=== PATIENT | female | born 1970 | race Hispanic/Latino ===

== ENCOUNTER → 2019-10-13 | Emergency (ER) | payer SELFPAY ==
[~2019-10-13] VITALS: Ht 160 cm; Wt 72.6 kg
[~2019-10-13] MED LIST: ACETAMINOPHEN 325 MG TAB ONE; ACETAMINOPHEN 325 MG TAB PO ONE; KETOROLAC TROMETHAMINE 30 MG/ML VIAL IM ONE; KETOROLAC TROMETHAMINE 60 MG/2 ML VIAL ONE; ONDANSETRON HCL 4 MG ORAL DISINTEGRATING TAB PO ONE
--- NOTE | 2019-10-13 12:12 | Emergency Department Note ---
History of Present Illnes History of Present Illness Chief Complaint: COVID PUI History of Present Illness This is a 48 year old female Chief Complaint Comment NOT EATING. NO APPETITE. PT AAOX4. AMBULATORY. SMOKER. SATS 100%. 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 ONSET 3 DAYS AGO. Historian: Patient Arrival Mode: Car Patient Placement Coordinator Required: No Onset (how long ago): day(s) (3) Location: Chest Quality: Congestion Radiation: Reports non-radiation Severity: moderate Onset quality: gradual Duration (how long): day(s) (3) Progression: worsening Chronicity: new Past Medical/Family History Physician Review I have reviewed the patient's past medical and family history. Any updates have been documented here. Past Medical History Recent Fever: Yes Clinical Suspicion of Infectio: No New/Unexplained Change in Ment: No Past Medical History: None Past Surgical History: Tubal Ligation, Bariatric Surgery Social History Smoking Cessation: Current every day smoker Counseling Performed: No Alcohol Use: None Any Illegal Drug Use: No Physically hurt or threatened: No Other Any Pre-Existing Lines (PICC,: No Review of Systems Review of Systems Constitutional: Reports as per HPI, Reports chills, Reports fever EENTM: Reports as per HPI, Reports nose congestion, Reports throat pain Cardiovascular: Reports no symptoms Respiratory: Reports as per HPI, Reports cough Gastrointestinal: Reports as per HPI, Reports diarrhea Genitourinary: Reports no symptoms Musculoskeletal: Reports muscle pain; Denies back pain, Denies gout, Denies joint pain, Denies joint swelling Integumentary: Reports no symptoms Neurological: Reports no symptoms Psychological: Reports no symptoms Endocrine: Reports no symptoms Hematological/Lymphatic: Reports no symptoms Physical Exam Related Data Allergies: Coded Allergies: No Known Allergies (Unverified , 10/13/19) Triage Vital Signs Vital Signs Date Time Temp Pulse Resp B/P (MAP) Pulse Ox O2 Delivery O2 Flow Rate FiO2 10/13/19 11:57 100.0 97 16 151/99 100 Room Air Vital signs reviewed: Yes Physical Exam CONSTITUTIONAL Constitutional: Present well-developed, Present well-nourished HENT HENT: Present normocephalic, Present atraumatic, Present oropharynx cl ear/moist, Present nose normal HENT L/R: Present left ext ear normal, Present right ext ear normal EYES Eyes: Reports PERRL, Reports conjunctivae normal NECK Neck: Present ROM normal PULMONARY Pulmonary: Present effort normal, Present breath sounds normal CARDIOVASCULAR Cardiovascular: Present regular rhythm, Present heart sounds normal, Present capillary refill normal, Present normal rate GASTROINTESTINAL Abdominal: Present soft, Present nontender, Present bowel sounds normal GENITOURINARY Genitourinary: Present exam deferred SKIN Skin: Present warm, Present dry MUSCULOSKELETAL Musculoskeletal: Present ROM normal NEUROLOGICAL Neurological: Present alert, Present oriented x 3, Present no gross motor or sensory deficits PSYCHOLOGICAL Psychological: Present mood/affect normal, Present judgement normal Assessment & Plan Medical Decision Making MDM 48-year-old female presenting with multiple complaints including nasal congestion, sore throat, cough, muscle aches, diarrhea. Symptoms consistent with chronic virus. She has not been tested but we'll send a test here. I'll signs stable, within normal limits. Saturating well on room air. She was given a shot of Toradol as well as Tylenol and Zofran in the emergency department. I discussed expected disease time course and management and she will follow up with her primary care provider or return to the emergency department for new or worsening symptoms. We'll prescribe her Zofran for home use as well as instructed to take [id number]. Doubt emergent process at this time. Patient's appropriate for discharge. Part of this note was dictated with Chris and is subject to recognition errors. Assessment & Plan Final Impression: (1) URI (upper respiratory infection) Depart Disposition: HOME, SELF-CARE Last Vital Signs Date Time Temp Pulse Resp B/P (MAP) Pulse Ox O2 Delivery O2 Flow Rate FiO2 10/13/19 11:57 100.0 97 16 151/99 100 Room Air Medications in the ED Acetaminophen 975 mg STK-MED ONCE .ROUTE ; Start 10/13/19 at 12:17; Stop 10/13/19 at 12:10; Status DC Ketorolac Tromethamine 60 mg STK-MED ONCE .ROUTE ; Start 10/13/19 at 12:17; Stop 10/13/19 at 12:11; Status DC ROSETTE SINCLAIR MD Oct 13, 2019 12:12
== END | disposition home or self-care (01) ==
LOC: ER 12:11
DX: J06.9 Acute upper respiratory infection, unspecified (principal); R09.81 Nasal congestion
CPT/HCPCS: 99283; J1885; U0002

== ENCOUNTER 2021-05-02 12:45 | Emergency (ER) | payer SELFPAY ==
[~2021-05-02] VITALS: Ht 160 cm; Wt 72.6 kg
[2021-05-02 13:37] LABS: BASOPHILS # (AUTO) 0.1 (0.0-0.1); BASOPHILS % 0.9 % (0.0-1.0); EOSINOPHILS # (AUTO) 0.3 (0.0-0.4); EOSINOPHILS % 3.5 % (0.0-6.0); HEMATOCRIT 39.2 % (34.2-44.1); HEMOGLOBIN 12.9 g/dL (12.0-16.0); LYMPHOCYTES # (AUTO) 3.4 (1.0-3.2); LYMPHOCYTES % 42.3 % (18.0-39.1); MEAN CORPUSCULAR HGB CONC 32.9 g/dL (31-35); MEAN CORPUSCULAR VOLUME 88.1 fL (81-99); MONOCYTES # (AUTO) 0.7 (0.2-0.8); MONOCYTES % 8.9 % (4.4-11.3); NEUTROPHILS # (AUTO) 3.6 (2.1-6.9); NEUTROPHILS % 44.3 % (38.7-80.0); PLATELET COUNT 321 x10e3/uL (140-360); RED BLOOD COUNT 4.45 x10e6/uL (3.6-5.1); RED CELL DISTRIBUTION WIDTH 13.9 % (11.7-14.4)
[2021-05-02 13:43] LABS: INR 0.84; PROTHROMBIN TIME 12.3 seconds (11.9-14.5)
[2021-05-02 13:51] LABS: ALBUMIN 3.7 g/dL (3.5-5.0); ALBUMIN/GLOBULIN RATIO 1.1 (0.8-2.0); ANION GAP 11.8 mmol/L (8-16); CALCIUM 9.6 mg/dL (8.4-10.2); CREATININE, SERUM 0.82 mg/dL (0.57-1.11); POTASSIUM 4.8 mmol/L (3.5-5.1)
[2021-05-02] MEDS ORDERED: OMEPRAZOLE40 MG PO (14:05)
== END 2021-05-02 14:32 | disposition home or self-care (01) ==
LOC: ER 12:51
DX: R10.13 Epigastric pain (principal); K29.70 Gastritis, unspecified, without bleeding; Z98.84 Bariatric surgery status; F17.210 Nicotine dependence, cigarettes, uncomplicated
CPT/HCPCS: 36415; 80053; 85025; 85610; 99283